=== PATIENT | female | born 1965 | race Caucasian/White ===

== ENCOUNTER 2016-07-08 17:23 | Emergency (ER) | payer OTHER ==
[~2016-07-08] VITALS: Ht 154.9 cm; Wt 43.9 kg
[~2016-07-08 17:23] MED LIST: ACETAMINOPHEN500 MG PO; ADVAIR 250/501 DISK IH; ALBUTEROL SULF8.5 GM IH; ATARAX,VISTARIL25 MG PO; ATARAX,VISTARIL50 MG PO; ATROVENT H200 INHALA IH; BACTRIM,SEPT1 TABLET PO; CIPRO500 MG PO; CIPRODEX OTIC7.5 ML RIGHT EAR; CLINDAMYCIN HC150 MG PO; COMBIVENT RESPIM4 GM IH; CORTISPORIN-TC10 M1 RIGHT EAR; CYCLOBENZAPRINE10 MG PO; FLOVENT 11120 INHALA IH; HYDROCODON-ACE1 EAC7 PO; IBUPROFEN800 MG PO; KEFLEX500 MG PO; MONTELUKAST SOD10 MG PO; MOTRIN600 MG PO; NEBULIZER1 EAC1 MC; NORCO 5/3251 TABLET PO; OMEPRAZOLE20 MG PO; PEPCID20 MG PO; PREDNISONE10 MG PO; PREDNISONE5 M1 PO; PREDNISONE5 MG PO; PREDNISONE50 MG PO; SINGULAIR10 MG PO; TAMIFLU75 MG PO; TESSALON PERLE100 MG PO; TRAMADOL HCL50 MG PO; TRIAMCINOLONE A60 M1 TP; TYLENOL WITH C1 EACH PO; ULTRAM50 MG PO; ZITHROMAX250 MG PO
[2016-07-08 18:36] LABS: HEMATOCRIT 39.3 % (36.0-46.0); MCH 28.3 PG (29.0-34.0); MCHC 33.1 G/DL (30.0-36.0); MCV 85.6 FL (83-99); MEAN PLAT.VOLUME 9.4 uM^3 (9.5-12.4); PLATELET COUNT 419 K/uL (156-360); RBC DIS.WIDTH-CV 12.8 % (11.8-14.6); RBC DIS.WIDTH-SD 39.8 % (39-53); RED BLOOD COUNT 4.59 M/uL (3.80-5.20); WHITE BLOOD COUNT 4.9 K/uL (4.1-10.2)
[2016-07-08 18:42] LABS: CHLORIDE 106 mEq/L (99-109); POTASSIUM 3.4 mEq/L (3.7-5.4); SODIUM 140 mEq/L (136-147)
[2016-07-08 18:44] LABS: GLUCOSE 107 mg/dL (70-99)
[2016-07-08 18:45] LABS: ANION GAP 9 MEQ/L (2-14)
[2016-07-08 18:47] LABS: SERUM ETHYL ALCOHOL < 10 mg/dL
[2016-07-08 18:48] LABS: GFR ESTIMATE (CALCULATED) > 59 mL/min/; UREA NITROGEN (BUN) 5 mg/dL (9-23)
[2016-07-08 21:38] VITALS: BP 117/62
== END 2016-07-08 21:46 | disposition home or self-care (01) ==
LOC: EME 17:23
DX: F32.9 Major depressive disorder, single episode, unspecified (principal); F43.21 Adjustment disorder with depressed mood; Z91.14 Patient's other noncompliance with medication regimen; Z73.3 Stress, not elsewhere classified; J44.9 Chronic obstructive pulmonary disease, unspecified; J45.909 Unspecified asthma, uncomplicated; F17.200 Nicotine dependence, unspecified, uncomplicated; Z71.6 Tobacco abuse counseling
CPT/HCPCS: 80048; 85027; 90839; 99281; 99285; G0480

== ENCOUNTER 2016-11-11 18:40 | Emergency (ER) | payer OTHER ==
[~2016-11-11] VITALS: Ht 152.4 cm; Wt 41.0 kg
[2016-11-11 19:54] LABS: HEMATOCRIT 46.1 % (36.0-46.0); MCH 28.7 PG (29.0-34.0); MCHC 33.4 G/DL (30.0-36.0); MEAN PLAT.VOLUME 9.5 uM^3 (9.5-12.4); PLATELET COUNT 442 K/uL (156-360); RBC DIS.WIDTH-CV 13.7 % (11.8-14.6); RBC DIS.WIDTH-SD 42.9 % (39-53); RED BLOOD COUNT 5.36 M/uL (3.80-5.20); WHITE BLOOD COUNT 7.7 K/uL (4.1-10.2)
[2016-11-11 20:02] LABS: CHLORIDE 103 mEq/L (99-109); POTASSIUM 3.8 mEq/L (3.7-5.4); SODIUM 139 mEq/L (136-147)
[2016-11-11 20:04] LABS: GLUCOSE 94 mg/dL (70-99)
[2016-11-11 20:05] LABS: ANION GAP 12 MEQ/L (2-14)
[2016-11-11 20:08] LABS: GFR ESTIMATE (CALCULATED) > 59 mL/min/
[2016-11-11 20:09] LABS: UREA NITROGEN (BUN) 7 mg/dL (9-23)
[2016-11-11] MEDS ORDERED: CELEXA20 MG PO (21:53)
[2016-11-11] MEDS ORDERED: PROVENTIL,2.5 MG/3 M IH (22:47)
[2016-11-11] MEDS ORDERED: ROBITUSSIN100 MG/5 M PO (22:47)
[2016-11-11] MEDS ORDERED: PREDNISONE20 MG PO (22:47)
[2016-11-11 23:04] VITALS: BP 129/61
== END 2016-11-11 23:05 | disposition home or self-care (01) ==
LOC: EME 18:40
DX: J44.1 Chronic obstructive pulmonary disease with (acute) exacerbation (principal); K21.9 Gastro-esophageal reflux disease without esophagitis; F32.9 Major depressive disorder, single episode, unspecified; F41.9 Anxiety disorder, unspecified; F17.200 Nicotine dependence, unspecified, uncomplicated
CPT/HCPCS: 71020; 80048; 85027; 94640; 99281; 99284; J7512

== ENCOUNTER 2016-12-04 05:07 | Emergency (ER) | payer OTHER ==
[~2016-12-04] VITALS: Ht 152.4 cm; Wt 43.5 kg
[~2016-12-04 05:07] MED LIST changes: +CELEXA20 MG PO; +PREDNISONE20 MG PO; +PROVENTIL,2.5 MG/3 M IH; +ROBITUSSIN100 MG/5 M PO
[2016-12-04 06:25] LABS: HEMATOCRIT 45.3 % (36.0-46.0); MCH 27.9 PG (29.0-34.0); MCHC 32.2 G/DL (30.0-36.0); MCV 86.5 FL (83-99); MEAN PLAT.VOLUME 8.7 uM^3 (9.5-12.4); PLATELET COUNT 440 K/uL (156-360); RBC DIS.WIDTH-CV 14.4 % (11.8-14.6); RBC DIS.WIDTH-SD 45.6 % (39-53); RED BLOOD COUNT 5.24 M/uL (3.80-5.20); WHITE BLOOD COUNT 11.1 K/uL (4.1-10.2)
[2016-12-04 06:33] LABS: CHLORIDE 102 mEq/L (99-109); POTASSIUM 3.9 mEq/L (3.7-5.4); SODIUM 139 mEq/L (136-147)
[2016-12-04 06:35] LABS: GLUCOSE 102 mg/dL (70-99)
[2016-12-04 06:36] LABS: ANION GAP 13 MEQ/L (2-14)
[2016-12-04 06:39] LABS: GFR ESTIMATE (CALCULATED) > 59 mL/min/; UREA NITROGEN (BUN) 13 mg/dL (9-23)
[2016-12-04] MEDS ORDERED: VALIUM5 MG PO (07:07)
[2016-12-04 08:06] VITALS: BP 145/75
== END 2016-12-04 08:17 | disposition home or self-care (01) ==
LOC: EME 05:07
PROVIDERS: Emergency Medicine
DX: G44.209 Tension-type headache, unspecified, not intractable (principal); M54.2 Cervicalgia; J44.9 Chronic obstructive pulmonary disease, unspecified; F17.200 Nicotine dependence, unspecified, uncomplicated
CPT/HCPCS: 70450; 80048; 85027; 99281; 99284; J2060; J2405; J7030

== ENCOUNTER 2017-01-04 05:21 | Emergency (ER) | payer OTHER ==
[~2017-01-04] VITALS: Ht 152.4 cm; Wt 45.6 kg
[~2017-01-04 05:21] MED LIST changes: +VALIUM5 MG PO
[2017-01-04 06:18] LABS: BASOPHIL COUNT 0.1 K/uL (0-0.1); EOSINOPHIL (%) 3.2 % (0-5); EOSINOPHIL COUNT 0.4 K/uL (0-0.3); HEMATOCRIT 41.3 % (36.0-46.0); IMMATURE GRANULOCYTE (%) 0.9 % (0.0-0.7); IMMATURE GRANULOCYTE COUNT 0.1 K/uL; INSTRUMENT ABS NEUTROPHIL CT 8.9 K/uL; LYMPHOCYTE COUNT 1.5 K/uL (1.0-2.8); MCH 28.4 PG (29.0-34.0); MCHC 32.4 G/DL (30.0-36.0); MCV 87.5 FL (83-99); MEAN PLAT.VOLUME 8.9 uM^3 (9.5-12.4); MONOCYTE (%) 8.8 % (3-12); MONOCYTE COUNT 1.1 K/uL (0-0.8); NEUTROPHIL (%) 73.9 % (45-76); NEUTROPHIL COUNT 8.9 K/uL (1.8-6.4); PLATELET COUNT 467 K/uL (156-360); RBC DIS.WIDTH-CV 14.1 % (11.8-14.6); RBC DIS.WIDTH-SD 45.5 % (39-53); RED BLOOD COUNT 4.72 M/uL (3.80-5.20)
[2017-01-04 06:30] LABS: CHLORIDE 105 mEq/L (99-109); POTASSIUM 3.9 mEq/L (3.7-5.4); SODIUM 141 mEq/L (136-147)
[2017-01-04 06:32] LABS: GLUCOSE 96 mg/dL (70-99)
[2017-01-04 06:33] LABS: ANION GAP 13 MEQ/L (2-14)
[2017-01-04 06:36] LABS: GFR ESTIMATE (CALCULATED) > 59 mL/min/
[2017-01-04 06:37] LABS: UREA NITROGEN (BUN) 13 mg/dL (9-23)
[2017-01-04 06:44] LABS: TROP-I INTERPRETATION NEGATIVE; TROPONIN-I < 0.01 ng/mL (0.0-0.30)
[2017-01-04 07:47] LABS: INFLUENZA A VIRAL ANTIGEN NEGATIVE; INFLUENZA B VIRAL ANTIGEN NEGATIVE
[2017-01-04] MEDS ORDERED: PREDNISONE50 MG PO (10:01)
[2017-01-04] MEDS ORDERED: FLOVENT 11120 INHALA IH (10:03)
[2017-01-04 10:26] VITALS: BP 147/79
== END 2017-01-04 10:35 | disposition home or self-care (01) ==
LOC: EME 05:21
PROVIDERS: Emergency Medicine
DX: J44.1 Chronic obstructive pulmonary disease with (acute) exacerbation (principal); F17.200 Nicotine dependence, unspecified, uncomplicated; Z71.6 Tobacco abuse counseling; K21.9 Gastro-esophageal reflux disease without esophagitis; F41.9 Anxiety disorder, unspecified; F32.9 Major depressive disorder, single episode, unspecified
CPT/HCPCS: 71020; 80048; 83605; 84484; 85025; 87040; 87502; 93005; 94640; 99281; 99285; J7030; J7512

== ENCOUNTER 2017-06-14 12:07 | Emergency (ER) | payer OTHER ==
[~2017-06-14] VITALS: Ht 149.9 cm; Wt 73.2 kg
[2017-06-14 12:42] LABS: HEMATOCRIT 43.6 % (36.0-46.0); HEMOGLOBIN 14.8 G/DL (11.9-15.5); MCH 28.4 PG (29.0-34.0); MCHC 33.9 G/DL (30.0-36.0); MCV 83.7 FL (83-99); PLATELET COUNT 342 K/uL (156-360); RBC DIS.WIDTH-CV 13.6 % (11.8-14.6); RBC DIS.WIDTH-SD 42.3 % (39-53); RED BLOOD COUNT 5.21 M/uL (3.80-5.20); WHITE BLOOD COUNT 3.3 K/uL (4.1-10.2)
[2017-06-14 12:54] LABS: CHLORIDE 102 mEq/L (99-109); POTASSIUM 4.1 mEq/L (3.7-5.4); SODIUM 140 mEq/L (136-147)
[2017-06-14 12:56] LABS: GLUCOSE 111 mg/dL (70-99)
[2017-06-14 13:00] LABS: CREATININE 0.7 mg/dL (0.6-1.3); GFR ESTIMATE (CALCULATED) > 59 mL/min/
[2017-06-14 13:01] LABS: UREA NITROGEN (BUN) 7 mg/dL (9-23)
[2017-06-14] MEDS ORDERED: PREDNISONE20 MG PO (14:44)
[2017-06-14 15:02] VITALS: BP 158/95
== END 2017-06-14 15:02 | disposition home or self-care (01) ==
LOC: EME 12:07
PROVIDERS: Nurse Practitioner Family
DX: J10.1 Influenza due to other identified influenza virus with other respiratory manifestations (principal); J44.1 Chronic obstructive pulmonary disease with (acute) exacerbation; K21.9 Gastro-esophageal reflux disease without esophagitis; F41.9 Anxiety disorder, unspecified; F32.9 Major depressive disorder, single episode, unspecified; F17.200 Nicotine dependence, unspecified, uncomplicated; Z79.51 Long term (current) use of inhaled steroids; Z91.041 Radiographic dye allergy status; Z91.013 Allergy to seafood
CPT/HCPCS: 71046; 80048; 85027; 87502; 99281; 99283; J7512

== ENCOUNTER 2017-08-02 22:18 | Inpatient (IN) | payer OTHER ==
[~2017-08-02] VITALS: Ht 152.4 cm; Wt 46.5 kg
[2017-08-03 00:07] LABS: HEMATOCRIT 41.7 % (36.0-46.0); HEMOGLOBIN 13.8 G/DL (11.9-15.5); MCH 28.3 PG (29.0-34.0); MCHC 33.1 G/DL (30.0-36.0); MCV 85.6 FL (83-99); PLATELET COUNT 410 K/uL (156-360); RBC DIS.WIDTH-CV 14.2 % (11.8-14.6); RBC DIS.WIDTH-SD 44.1 % (39-53); RED BLOOD COUNT 4.87 M/uL (3.80-5.20)
[2017-08-03 00:19] LABS: CHLORIDE 106 mEq/L (99-109); POTASSIUM 3.4 mEq/L (3.7-5.4); SODIUM 142 mEq/L (136-147)
[2017-08-03 00:20] LABS: GLUCOSE 121 mg/dL (70-99)
[2017-08-03 00:24] LABS: CREATININE 0.8 mg/dL (0.6-1.3); GFR ESTIMATE (CALCULATED) > 59 mL/min/; SERUM ETHYL ALCOHOL < 10 mg/dL
[2017-08-03 00:25] LABS: UREA NITROGEN (BUN) 13 mg/dL (9-23)
[2017-08-03] MEDS ORDERED: REMERON PO (04:29)
[2017-08-03] MEDS ORDERED: WELLBUTRIN SR150 MG PO (04:30)
[2017-08-03] MEDS ORDERED: RANITIDINE HCL150 M1 PO (04:36)
[2017-08-03] MEDS ORDERED: XANAX0.5 MG PO (04:36)
[2017-08-03 04:58] LABS: AMPHETAMINE NEGATIVE (500 ng/mL); BARBITURATES NEGATIVE (200 ng/mL); BENZODIAZEPINES PRESUMPTIVE POSITIVE (150 ng/mL); BUPRENORPHINE NEGATIVE (10 ng/mL); COCAINE PRESUMPTIVE POSITIVE (150 ng/mL); METHADONE NEGATIVE (200 ng/mL); METHAMPHETAMINE NEGATIVE (500 ng/mL); OPIATES (MORPHINE) NEGATIVE (100 ng/mL); OXYCODONE NEGATIVE (100 ng/mL); PHENCYCLIDINE NEGATIVE (25 ng/mL); PROPOXYPHENE NEGATIVE (300 ng/mL); THC CANNABINOIDS NEGATIVE (50 ng/mL); TRICYCLIC ANTIDEPRESSANTS NEGATIVE (300 ng/mL)
[2017-08-03 05:10] VITALS: BP 122/70
[2017-08-03 05:23] VITALS: BP 122/70
[2017-08-03 05:30] LABS: BENZODIAZEPINES, URINE SCREEN POSITIVE (200 ng/mL)
[2017-08-03 07:42] VITALS: BP 121/59
[2017-08-03] MEDS ORDERED: SYMBICORT60 INHALA1 IH (09:43)
[2017-08-03] MEDS ORDERED: MIRTAZAPINE30 MG PO (09:45)
[2017-08-03 11:08] LABS: FOLIC ACID (FOLATE) 12.8 NG/ML (5.0-22.0)
[2017-08-04 07:31] VITALS: BP 165/78
[2017-08-04 15:54] VITALS: BP 113/59
[2017-08-05 07:52] VITALS: BP 151/67
[2017-08-05 15:59] VITALS: BP 150/78
[2017-08-06 08:14] VITALS: BP 125/75
[2017-08-06] MEDS ORDERED: VITAMIN D31000 UNI2 PO (08:55)
[2017-08-06] MEDS ORDERED: BUPROPION HCL150 M2 PO (08:55)
[2017-08-06] MEDS ORDERED: ROPINIROLE HCL1 MG PO (08:55)
== END 2017-08-06 13:18 | disposition other institution (70) | DRG 885 ==
LOC: EME 22:18 → 1WEST 08-03 02:23 → EDOF 08-03 02:23 → ENRESERV 08-03 04:14 → 1WEST 08-03 05:06
PROVIDERS: Psychiatry & Neurology Psychiatry
DX: F33.2 Major depressive disorder, recurrent severe without psychotic features (principal); F14.20 Cocaine dependence, uncomplicated; R45.851 Suicidal ideations; R64 Cachexia; Z68.1 Body mass index [BMI] 19.9 or less, adult; J43.9 Emphysema, unspecified; G47.00 Insomnia, unspecified; F17.210 Nicotine dependence, cigarettes, uncomplicated; F13.10 Sedative, hypnotic or anxiolytic abuse, uncomplicated; F43.22 Adjustment disorder with anxiety; G25.81 Restless legs syndrome; K21.9 Gastro-esophageal reflux disease without esophagitis; Z79.51 Long term (current) use of inhaled steroids; Z56.0 Unemployment, unspecified; Z91.041 Radiographic dye allergy status; Z91.013 Allergy to seafood
CPT/HCPCS: 80048; 82306; 82607; 82746; 84443; 84999; 85027; 90839; 94640; 94640 76; 97150 GO; 97166 GO; 99202; 99281; 99285; G0480; J7512; Q0177

== ENCOUNTER 2017-09-19 15:02 | Emergency (ER) | payer OTHER ==
[~2017-09-19] VITALS: Ht 152.4 cm; Wt 51.8 kg
[~2017-09-19 15:02] MED LIST changes: +BUPROPION HCL150 M2 PO; +MIRTAZAPINE30 MG PO; +RANITIDINE HCL150 M1 PO; +REMERON PO; +ROPINIROLE HCL1 MG PO; +SYMBICORT60 INHALA1 IH; +VITAMIN D31000 UNI2 PO; +WELLBUTRIN SR150 MG PO; +XANAX0.5 MG PO
[2017-09-19 15:30] LABS: BASOPHIL (%) 0.2 % (0-1); EOSINOPHIL (%) 0 % (0-5); HEMATOCRIT 41.4 % (36.0-46.0); IMMATURE GRANULOCYTE (%) 0.4 % (0.0-0.7); LYMPHOCYTE COUNT 0.8 K/uL (1.0-2.8); MCH 28.5 PG (29.0-34.0); MCHC 33.8 G/DL (30.0-36.0); MCV 84.1 FL (83-99); MONOCYTE (%) 1.7 % (3-12); MONOCYTE COUNT 0.1 K/uL (0-0.8); NEUTROPHIL (%) 87.7 % (45-76); PLATELET COUNT 474 K/uL (156-360); RBC DIS.WIDTH-SD 43.2 % (39-53); RED BLOOD COUNT 4.92 M/uL (3.80-5.20)
[2017-09-19 15:40] LABS: CHLORIDE 104 mEq/L (99-109); POTASSIUM 3.9 mEq/L (3.7-5.4); SODIUM 140 mEq/L (136-147)
[2017-09-19 15:42] LABS: GLUCOSE 143 mg/dL (70-99)
[2017-09-19 15:45] LABS: SERUM ETHYL ALCOHOL < 10 mg/dL
[2017-09-19 15:46] LABS: CREATININE 0.8 mg/dL (0.6-1.3); GFR ESTIMATE (CALCULATED) > 59 mL/min/
[2017-09-19 15:47] LABS: UREA NITROGEN (BUN) 12 mg/dL (9-23)
[2017-09-19 15:49] LABS: ACETAMINOPHEN (TYLENOL) < 10 mcg/mL (10-30); SALICYLATE < 5.0 MG/DL (15-30)
[2017-09-19 16:00] LABS: AMPHETAMINE NEGATIVE (500 ng/mL); BARBITURATES NEGATIVE (200 ng/mL); BENZODIAZEPINES NEGATIVE (150 ng/mL); BUPRENORPHINE NEGATIVE (10 ng/mL); COCAINE PRESUMPTIVE POSITIVE (150 ng/mL); METHADONE NEGATIVE (200 ng/mL); METHAMPHETAMINE NEGATIVE (500 ng/mL); OPIATES (MORPHINE) NEGATIVE (100 ng/mL); OXYCODONE NEGATIVE (100 ng/mL); PHENCYCLIDINE NEGATIVE (25 ng/mL); PROPOXYPHENE NEGATIVE (300 ng/mL); THC CANNABINOIDS NEGATIVE (50 ng/mL); TRICYCLIC ANTIDEPRESSANTS NEGATIVE (300 ng/mL)
[2017-09-19 16:32] VITALS: BP 151/72
== END 2017-09-19 16:37 | disposition home or self-care (01) ==
LOC: EME 15:02
PROVIDERS: Emergency Medicine
DX: F33.1 Major depressive disorder, recurrent, moderate (principal); F14.20 Cocaine dependence, uncomplicated; F13.10 Sedative, hypnotic or anxiolytic abuse, uncomplicated; Z04.6 Encounter for general psychiatric examination, requested by authority; J44.9 Chronic obstructive pulmonary disease, unspecified; K21.9 Gastro-esophageal reflux disease without esophagitis; F41.9 Anxiety disorder, unspecified; Z86.69 Personal history of other diseases of the nervous system and sense organs; F17.200 Nicotine dependence, unspecified, uncomplicated; Z91.013 Allergy to seafood
CPT/HCPCS: 80048; 84999; 85025; 90837; 99281; 99284; G0480